=== PATIENT | male | born 1955 | race Caucasian/White ===

== ENCOUNTER 2017-09-27 16:23 | Emergency (ER) | payer OTHER ==
[~2017-09-27] VITALS: Ht 172.7 cm; Wt 72.8 kg
[~2017-09-27 16:23] MED LIST: COUMADIN5 MG PO; CYMBALTA30 MG PO; CYMBALTA60 MG PO; DOXYCYCLINE HY100 MG PO; FLEXERIL10 MG PO; FLOMAX0.4 MG PO; Habitrol,Nicoderm CQ TD; LYRICA300 MG PO; OXYCODONE HCL10 MG PO; OXYCONTIN20 MG PO; OXYCONTIN30 MG PO; PREDNISONE20 MG PO; Protonix PO; oxyCODONE PO
[2017-09-27 17:04] LABS: HEMATOCRIT 42.4 % (38.0-50.0); HEMOGLOBIN 14.9 G/DL (12.5-16.6); MCH 33.7 PG (29.0-34.0); MCHC 35.1 G/DL (30.0-36.0); MCV 95.9 FL (86-99); PLATELET COUNT 252 K/uL (156-360); RBC DIS.WIDTH-CV 13.1 % (11.8-14.6); RBC DIS.WIDTH-SD 46.5 % (39-53); RED BLOOD COUNT 4.42 M/uL (4.00-5.50); WHITE BLOOD COUNT 18.1 K/uL (4.1-10.2)
[2017-09-27 17:15] LABS: CHLORIDE 103 mEq/L (99-109); POTASSIUM 4.5 mEq/L (3.7-5.4); SODIUM 135 mEq/L (136-147)
[2017-09-27 17:16] LABS: GLUCOSE 108 mg/dL (70-99)
[2017-09-27 17:19] LABS: INTER. NORMALIZED RATIO 8.6
[2017-09-27 17:20] LABS: CREATININE 1.2 mg/dL (0.6-1.3); GFR ESTIMATE (CALCULATED) > 59 mL/min/ (58.99-99999)
[2017-09-27 17:21] LABS: UREA NITROGEN (BUN) 13 mg/dL (9-23)
[2017-09-27 18:40] LABS: APPEARANCE CLEAR ((CLEAR)); BILIRUBIN NEGATIVE; BLOOD NEGATIVE; COLOR YELLOW ((YELLOW)); GLUCOSE (STRIP) NEGATIVE; KETONES NEGATIVE; LEUKOCYTES NEGATIVE; NITRITE NEGATIVE; PROTEIN (STRIP) NEGATIVE; SPECIFIC GRAVITY 1.008 (1.000-1.030); UROBILINOGEN 0.2 MG/DL (0.2-1.0)
[2017-09-27 19:07] VITALS: BP 133/95
== END 2017-09-27 19:08 | disposition home or self-care (01) ==
LOC: EME 16:23
PROVIDERS: Emergency Medicine
DX: R79.1 Abnormal coagulation profile (principal); D72.829 Elevated white blood cell count, unspecified; Z79.01 Long term (current) use of anticoagulants; F17.200 Nicotine dependence, unspecified, uncomplicated
CPT/HCPCS: 80048; 81003; 85027; 85610; 86850; 86900; 86901; 99281; 99284